=== PATIENT | male | born 1995 | race Caucasian/White ===

== ENCOUNTER 2017-07-06 13:24 | Emergency (ER) | payer MEDICAID ==
--- NOTE | 2017-07-07 13:13 | NUR ---
Pt triggered as a high ED user. Called and spoke with pt. States Dr. Gibson is his PCP. Pt states he has Medicaid and is able to get his medications. Pt states he has transportation to/from medical appts. Deny any other needs or concerns at this time.
--- NOTE | 2017-07-07 19:27 | ER ---
ADMIT: 07/06/2017 RM/LOC: ER [facility] MR#: [id number] [id number] [address] [place] [address] Emergency Room Report SEX: M AGE: 22 : 1995 DATE: 07/06/2017 ADDENDUM: CHIEF COMPLAINT: Hiccups. HISTORY OF PRESENT ILLNESS: This is a 22-year-old male, who has a history of chronic migraines in fact he takes Topamax, escitalopram, naproxen, and verapamil for his migraines. The reason he comes here today is because he has been hiccuping for over a week and this is made the headaches worse. He rates his pain at 9/10. COURSE IN THE EMERGENCY ROOM: I gave him Thorazine. His hiccups are gone for now. I am going to discharge him home and have follow up Dr. Gibson and the hiccups persists. CLINICAL IMPRESSION: 1. Persistent hiccups. 2. Chronic migraines. ODILON Miguel / Aydin Miles MD / tatiana JOB #: [id number] CC: Aydin Miles MD, Attending Physician Rae Gibson MD, Family Physician
== END 2017-07-06 15:00 | disposition home or self-care (01) ==
LOC: ER 13:24
DX: R06.6 Hiccough (principal); G43.709 Chronic migraine without aura, not intractable, without status migrainosus; Z88.0 Allergy status to penicillin; Z79.899 Other long term (current) drug therapy